=== PATIENT | female | born 2005 | race Two or more races ===

== ENCOUNTER 2024-08-22 19:05 | Emergency (ER) | payer MEDICAID, SELFPAY ==
--- NOTE | 2024-08-22 19:21 | EDNOTE_ITS ---
ED Ear RME/HPI General Chief complaint: Ear Stated complaint: Left Ear Pain x 3 days Time Seen by Provider: 08/22/24 19:28 Source: patient Arrival date/time: 08/22/24 19:05 19-year-old female with no known medical history presents to the emergency room with a chief complaint of left ear tenderness and drainage x 3 days. Mode of arrival: ambulatory Limitations: no limitations Related Data Previous Rx's ?Medication ?Instructions ?Recorded ibuprofen 800 mg tablet 800 mg PO TID PRN pain #30 tabs 02/08/24 amoxicillin 875 mg-potassium 1 tab PO BID 7 days #14 tabs 08/22/24 clavulanate 125 mg tablet ofloxacin 0.3 % ear drops 5 drp otic (ear) QDAY 7 days #10 mL 08/22/24 Allergies Allergy/AdvReac Type Severity Reaction Status Date / Time No Known Allergies Allergy Verified 02/08/24 14:31 Review of Systems Review of Systems Systems Reviewed: All systems reviewed, normal except as documented Constitutional Constitutional: Reports system reviewed and no additional complaints, except as documented, Denies fatigue, Denies fever(s), Denies headache(s) and Denies weakness Eyes Eyes: Reports system reviewed and no additional complaints, except as documen susanne, Denies blurry vision and Denies change in vision ENT Ears, Nose, Mouth, and Throat: Reports system reviewed and no additional complaints, except as documented, Reports ear discharge, Reports otalgia, Denies headache(s), Denies nasal congestion, Denies throat swelling and Denies vertigo Cardiovascular Cardiovascular: Reports system reviewed and no additional complaints, except as documented, Denies chest pain, Denies dyspnea and Denies dyspnea on exertion Respiratory Respiratory: Reports system reviewed and no additional complaints, except as documented, Denies chest congestion, Denies cough, Denies dyspnea, Denies dyspnea on exertion and Denies wheezing Gastrointestinal Gastrointestinal: Reports system reviewed and no additional complaints, except as documented, Denies abdominal pain, Denies cramping, Denies nausea and Denies vomiting Genitourinary Genitourinary: Reports system reviewed and no additional complaints, except as documented Musculoskeletal Musculoskeletal: Reports system reviewed and no additional complaints, except as documented and Denies back pain Integumentary/Breasts Skin/Breast: Reports system reviewed and no additional complaints, except as documented and Denies wounds Neurologic Neurologic: Reports system reviewed and no additional complaints, except as documented, Denies confusion, Denies headache(s), Denies lack of coordination, Denies vertigo and Denies weakness Psychiatric Psychiatric: Reports system reviewed and no additional complaints, except as documented, Denies anxiety, Denies confusion, Denies depression, Denies paranoia, Denies suicidal ideation and Denies tactile hallucinations Endocrine Endocrine: Reports system reviewed and no additional complaints, except as documented and Denies fatigue Hematologic/Lymphatic Hematologic/Lymphatic: Reports system reviewed and no additional complaints, exc ept as documented and Denies lymphadenopathy Allergic/Immunologic Allergic/Immunologic: Reports system reviewed and no additional complaints, except as documented, Denies throat swelling, Denies urticaria and Denies wheezing Past Medical History Social History SMOKING STATUS: Never smoker ED Exam General Limitations: Present no limitations General appearance: Present alert and in no apparent distress Head Head exam: Present atraumatic Eye Eye exam: Present normal appearance, PERRL and EOMI ENT ENT exam: Present normal exam, normal oropharynx and mucous membranes moist; Absent TM's normal bilaterally Expanded ENT Exam External ear exam: Present pain with movement and external tenderness TM/Canal exam: Left TM: erythema, effusion, perforation, canal discharge and canal tenderness Mouth exam: Present normal external inspection Teeth exam: Present normal inspection Throat exam: Present normal inspection Neck Neck exam: Present normal inspection, full ROM and trachea midline Chest Chest inspection: Present normal inspection and symmetric chest wall rise Respiratory Respiratory exam: Present normal lung sounds bilaterally Cardiovascular Cardiovascular exam: Present regular rate, normal rhythm and normal heart sounds Abdominal Exam Abdominal exam: Present soft and normal bowel sounds Extremities Exam Extremities exam: Present normal inspection and full ROM Back Exam Back exam: Present normal inspection and full ROM Neurological Exam Neurological exam: Present alert, oriented X3 and CN II-XII intact Psychiatric Psychiatric exam: Present normal affect and normal mood Skin Skin exam: Present warm, dry, intact and normal color Course Quality Measures none Orders Category Date Time Status cefTRIAXone [Rocephin] 1,000 mg Med 08/22/24 19:21 Discontinued Lidocaine 1% 20 ml [Xylocaine 1% 20 ML] 2.1 ml IM X1 Vital Signs Vital signs: Vital Signs Temperature 98.5 F 08/22/24 19:23 Pulse Rate 88 08/22/24 19:23 Respiratory Rate 18 08/22/24 19:23 Blood Pressure 134/89 H 08/22/24 19:23 Pulse Oximetry (%) 99 08/22/24 19:23 Oxygen Delivery Method Room Air 08/22/24 19:23 Ear Patient data External records reviewed:: [facility] previous records Clinical information provided by:: patient Social determinants that could affect healthcare access:: none Patient has the following chronic illnesses:: No chronic illness How is presenting disease/condition affected by chronic disease/condition?: no chronic disease Evaluation data The following diagnostics were reviewed and interpreted by me:: lab results and radiology exam(s) Lab and/or radiology exams considered but not ordered:: Labs and radiology exams considered and ordered Interpretation Summary: N/A Medications / Prescriptions Medications or Prescriptions considered but not ordered:: Medication given Medication administrations:: Medication Administration History Discontinued Medications Ceftriaxone Sodium 1,000 mg/ (Lidocaine HCl 2.1 ml) 0 mg IM X1 ONE Stop: 08/22/24 19: Last Admin: 08/22/24 20:19 Dose: 1,000 mg Documented By: Medication given Consultations Consultation(s) initiated? (list below): No Diagnosis Ear Differential Diagnosis: otitis externa, otitis media, ruptured TM and cerumen impaction Most likely diagnosis given after review of the tests above:: Otitis media Admission Indicated Admission indicated?: not indicated Admission Request Was there a request for admission?: No Disposition Plan Disposition Plan: Discharge Discharge Attestation Discharge Attestation: The patient and all family members were given an opportunity to ask questions and understood the discharge instructions. Discharge instructions specifically effects, indications for sooner follow up or return to the emergency department, and the expected course of current diagnosis. Patient condition: Stable Medical Decision Making MDM Narrative MDM Narrative: 19-year-old female with no known medical history presents to the emergency room with a chief complaint of left ear tenderness and drainage x 3 days. Clinically the patient appears nontoxic and in no apparent distress. Physical examination shows pain and tenderness to the left ear external canal as well as drainage and a bulging red tympanic membrane. There is pus inside her left eardrum. Medication was sent to her pharmacy and patient was discharged and educated to follow-up with her primary care provider in the next 24 to 48 hours. Patient was educated if she cannot get into her primary care provider to return in the next 48 hours for reevaluation of her ear. Differential Diagnosis Differential Diagnosis: Otitis media/otitis externa Discharge Plan Plan Patient Disposition: HOME (Self Care) Disposition Comment: Stable Prescriptions/Referrals Prescriptions/Med Rec: New ofloxacin 0.3 % drops 5 drp otic (ear) QDAY 7 Days Qty: 10 0RF amoxicillin-pot clavulanate 875-125 mg tablet 1 tab PO BID 7 Days Qty: 14 0RF No Action ibuprofen 800 mg tablet 800 mg PO TID PRN (Reason: pain) Qty: 30 0RF Problem List Clinical Impression: Otitis media Patient/Caregiver Discharge Instructions Education Materials: ED Otitis Media Antibiotic ... Additional Instructions: Peter un seguimiento con avendaño proveedor de atenci?n primaria en las pr?ximas 24 a 48 horas. Los antibi?ticos se env?an a avendaño farmacia por favor rec?jalos y t?melos brandy se indica. Si hay evidencia de signos o s?ntomas que empeoran, regrese a la isatu de emergencias de inmediato. Print Language: Australian Stand Alone Forms: Shelby Award Info., Work/School Release, Patient Portal Info Letter PA/MEDICAL INSURANCE CODING SPECIALIST Supervising Physician PA/MEDICAL INSURANCE CODING SPECIALIST Supervising Physician: Dr. Gregg
[2024-08-22 19:23] VITALS: BP 134/89; PULSE 88; RESP 18; TEMP 36.9; O2SAT 99
[2024-08-22] MEDS: cefTRIAXone 1,000 MG, LIDOCAINE 1% 20 ML 2.1 ML IM (20:19)
== END 2024-08-22 20:50 | disposition home or self-care (01) ==
PROVIDERS: Emergency Provider Emergency Medicine
DX: H66.92 Otitis media, unspecified, left ear (principal)
CPT/HCPCS: 96372; 99283; J0696; J3490